=== PATIENT | male | born 1980 | race Caucasian/White ===

== ENCOUNTER 2016-10-27 17:24 | Emergency (ER) | payer OTHER | END 2016-10-27 18:05 | disposition short-term general hospital (02) | LOC: ER 17:24 | DX: T63.091A Toxic effect of venom of other snake, accidental (unintentional), initial encounter (principal); F17.210 Nicotine dependence, cigarettes, uncomplicated; Z87.442 Personal history of urinary calculi; Y92.89 Other specified places as the place of occurrence of the external cause | CPT/HCPCS: 96374; 96375 ==